=== PATIENT | male | born 1990 | race Caucasian/White ===

== ENCOUNTER 2019-11-01 20:57 | Emergency (ER) | payer OTHER ==
[~2019-11-01] VITALS: Ht 172.7 cm; Wt 95.3 kg
[2019-11-01 21:00] VITALS: BP 143/88
--- NOTE | 2019-11-01 21:05 | NUR ---
PT KELSY ALS. TAKEN TO BED 5
--- NOTE | 2019-11-01 21:06 | NUR ---
Dr. Hansen examining patient.
--- NOTE | 2019-11-01 21:06 | NUR ---
BIBA C/O HIGH SPEED DELIA PURSUIT AND METH USE. LUNG SOUNDS CLEAR ALL THROUGHOUT. HEART SOUND S1S2 PRESENT. RAPID HEART RATE . A&O X4. PT IS AGITATED, COMBATIVE, AND PARANOID. UNKNOWN ALELRGIES. UNKNOWN PMH.
[2019-11-01] MEDS ORDERED: NACL 0.9% 1,000 ML IV ONE (21:10)
[2019-11-01] MEDS ORDERED: LORazepam 1 MG TAB PO ONE (21:40)
[2019-11-01] MEDS ORDERED: LORazepam 2 MG/ML VIAL IVP ONE (21:40)
--- NOTE | 2019-11-02 00:29 | NUR ---
Patient discharged with v/s stable. Written and verbal after care instructions given and explained. Patient verbalized understanding. PT AMBULATED WITH [facility] chief building inspector Grace MCNAMARA, in custody. All questions addressed prior to discharge. Advised to follow up with PMD.
[2019-11-02 00:33] VITALS: BP 134/105
== END 2019-11-02 00:29 ==
LOC: MED 20:57
DX: Z04.1 Encounter for examination and observation following transport accident (principal); Z02.89 Encounter for other administrative examinations; V43.92XA Unspecified car occupant injured in collision with other type car in traffic accident, initial encounter; Y93.89 Activity, other specified; Y92.89 Other specified places as the place of occurrence of the external cause; Y99.8 Other external cause status
CPT/HCPCS: 71045; 96374; 99283; J2060; J7030; Q0092